=== PATIENT | female | born 1990 | race Caucasian/White ===

== ENCOUNTER 2018-03-25 15:45 | Emergency (ER) | payer MEDICAID, OTHER ==
[2018-03-25] MEDS: METOCLOPRAMIDE 10 MG INJ IV (19:13)
[2018-03-25] MEDS: SOD CHLORIDE 0.9% 1,000 ML IV (19:13)
[2018-03-25] MEDS: DIPHENHYDRAMINE 50 MG INJ IV (19:13)
== END 2018-03-25 20:25 | disposition home or self-care (01) ==
LOC: FTE 15:45
DX: O21.0 Mild hyperemesis gravidarum (principal); Z3A.13 13 weeks gestation of pregnancy
CPT/HCPCS: 96374; 99284-25

== ENCOUNTER 2018-09-15 16:33 | Outpatient (CLI) | payer MEDICAID ==
[2018-09-15 17:58] LABS: ADD UMIC YES; UR ASCORBIC ACID NEGATIVE (NEGATIVE); UR BACTERIA FEW /HPF (NONE SEEN); UR BILIRUBIN (Dip) NEGATIVE (NEGATIVE); UR BLOOD (Dip) NEGATIVE (NEGATIVE); UR CALCIUM OXALATE CRYSTAL MANY /HPF (NONE SEEN); UR CLARITY CLOUDY (CLEAR); UR COLOR YELLOW (YELLOW); UR GLUCOSE (Dip) NEGATIVE (NEGATIVE); UR KETONES (Dip) TRACE mg/dL (NEGATIVE); UR LEUKOCYTE ESTERASE (Dip) TRACE Leu/ul (NEGATIVE); UR MUCUS MODERATE /HPF (NONE SEEN); UR NITRITE (Dip) NEGATIVE (NEGATIVE); UR RBC 1 /HPF (0-5); UR SPECIFIC GRAVITY (Dip) 1.028 (1.003-1.030); UR SQUAMOUS EPITHELIAL CELL MANY /HPF (FEW); UR TOTAL PROTEIN (Dip) 1+ mg/dl (NEGATIVE); UR UROBILINOGEN (Dip) NEGATIVE (NEGATIVE); UR WBC 9 /HPF (0-5)
== END 2018-09-15 18:30 | disposition home or self-care (01) ==
LOC: OBT 16:33 → L-D 16:33 → OBT 18:30
DX: O62.9 Abnormality of forces of labor, unspecified (principal); Z3A.38 38 weeks gestation of pregnancy
CPT/HCPCS: 76815; 76818; 81001

== ENCOUNTER 2018-09-24 15:16 | Inpatient (IN) | payer MEDICAID ==
[2018-09-24] MEDS ORDERED: BUTORPHANOL 2 MG INJ IV (16:30)
[2018-09-24] MEDS ORDERED: METHYLERGONOVINE 0.2 MG INJ IM (16:30)
[2018-09-24] MEDS ORDERED: IBUPROFEN 600 MG TAB PO (16:30)
[2018-09-24] MEDS ORDERED: CARBOPROST 250 MCG INJ IM (16:30)
[2018-09-24] MEDS ORDERED: LIDOCAINE 1% (MPF) 30 ML INJ INJ (16:30)
[2018-09-24] MEDS ORDERED: OXYTOCIN 30 UNITS/LR 500 ML IV (16:30)
[2018-09-24] MEDS ORDERED: OXYCODONE/ASPIRIN (4.88/325) TAB PO (16:30)
[2018-09-24] MEDS ORDERED: MISOPROSTOL 200 MCG TAB PR (16:30)
[2018-09-24 17:14] LABS: ADD MAN DIFF? NO
[2018-09-24] MEDS: LACTATED RINGER'S 1,000 ML IV ×2 (17:16→21:37)
[2018-09-24 17:19] LABS: BASOPHILS % 0.4 % (0.0-2.0); EOSINOPHILS # 0.1 10^3/ul (0.0-0.5); EOSINOPHILS % 0.5 % (0.0-7.0); HEMATOCRIT 37.1 % (37.0-47.0); HEMOGLOBIN 11.8 g/dl (12.0-16.0); LYMPHOCYTES # 2.9 10^3/ul (0.8-2.9); LYMPHOCYTES % 27.1 % (15.0-51.0); MEAN CORPUSCULAR HEMOGLOBIN 26.3 pg (29.0-33.0); MEAN CORPUSCULAR HGB CONC 31.8 g/dl (32.0-37.0); MEAN CORPUSCULAR VOLUME 82.6 fl (82.0-101.0); MEAN PLATELET VOLUME 10.3 fl (7.4-10.4); MONOCYTE # 0.6 10^3/ul (0.3-0.9); MONOCYTES % 5.9 % (0.0-11.0); NEUTROPHIL # 6.9 10^3/ul (1.6-7.5); NEUTROPHILS % 65.6 % (39.0-77.0); PLATELET COUNT 271 10^3/UL (140-415); RED BLOOD COUNT 4.49 10^6/ul (4.20-5.40); RED CELL DISTRIBUTION WIDTH 14.4 % (11.5-14.5)
[2018-09-24 17:19] LABS: WHITE BLOOD COUNT 10.6 10^3/ul (4.8-10.8)
[2018-09-24 17:38] LABS: INR 0.91; PROTIME 12.3 Sec (11.9-14.9)
[2018-09-24 17:39] LABS: PARTIAL THROMBOPLASTIN TIME 24.5 Sec (23.0-35.0)
[2018-09-24 18:06] LABS: HEPATITIS B SURFACE ANTIGEN NEGATIVE (NEGATIVE)
[2018-09-25] MEDS: OXYTOCIN 30 UNITS/LR 500 ML IV ×2 (00:53→01:15)
[2018-09-25] MEDS ORDERED: ZOLPIDEM 5 MG TAB PO (04:00)
[2018-09-25] MEDS ORDERED: BENZOCAINE 20% 56 ML SPRAY TOP (04:00)
[2018-09-25] MEDS ORDERED: CARBOPROST 250 MCG INJ IM (04:00)
[2018-09-25] MEDS ORDERED: OXYCODONE/ASPIRIN (4.88/325) TAB PO ×2 (04:00)
[2018-09-25] MEDS ORDERED: MISOPROSTOL 200 MCG TAB PR (04:00)
[2018-09-25] MEDS ORDERED: METHYLERGONOVINE 0.2 MG INJ IM (04:00)
[2018-09-25] MEDS ORDERED: OXYTOCIN 30 UNITS/LR 500 ML IV (04:00)
[2018-09-25] MEDS: IBUPROFEN 600 MG TAB PO ×3 (05:28→17:27)
[2018-09-25] MEDS: LANOLIN HPA 1 PKT TOP (05:28)
[2018-09-25] MEDS: WITCH HAZEL/GLYCERIN PAD PR (05:28)
[2018-09-25] MEDS: SENNA/DOCUSATE NA (8.6MG/50MG) TAB PO ×2 (09:56→22:14)
[2018-09-25 15:53] LABS: RAPID PLASMA REAGIN NONREACTIVE (NR)
[2018-09-26] MEDS: IBUPROFEN 600 MG TAB PO ×5 (00:46→23:45)
[2018-09-26 08:47] LABS: ADD MAN DIFF? NO
[2018-09-26 08:50] LABS: BASOPHIL # 0.1 10^3/ul (0.0-0.1); BASOPHILS % 0.8 % (0.0-2.0); EOSINOPHILS # 0.2 10^3/ul (0.0-0.5); EOSINOPHILS % 1.7 % (0.0-7.0); HEMATOCRIT 33.5 % (37.0-47.0); HEMOGLOBIN 10.6 g/dl (12.0-16.0); LYMPHOCYTES # 4.1 10^3/ul (0.8-2.9); LYMPHOCYTES % 45.1 % (15.0-51.0); MEAN CORPUSCULAR HEMOGLOBIN 26.4 pg (29.0-33.0); MEAN CORPUSCULAR HGB CONC 31.6 g/dl (32.0-37.0); MEAN CORPUSCULAR VOLUME 83.5 fl (82.0-101.0); MEAN PLATELET VOLUME 10.5 fl (7.4-10.4); MONOCYTE # 0.6 10^3/ul (0.3-0.9); MONOCYTES % 6.2 % (0.0-11.0); NEUTROPHIL # 4.1 10^3/ul (1.6-7.5); NEUTROPHILS % 45.8 % (39.0-77.0); PLATELET COUNT 250 10^3/UL (140-415); RED BLOOD COUNT 4.01 10^6/ul (4.20-5.40); RED CELL DISTRIBUTION WIDTH 14.6 % (11.5-14.5)
[2018-09-26] MEDS: SENNA/DOCUSATE NA (8.6MG/50MG) TAB PO ×2 (09:00→20:57)
[2018-09-27] MEDS: IBUPROFEN 600 MG TAB PO ×2 (05:51→11:16)
[2018-09-27] MEDS: SENNA/DOCUSATE NA (8.6MG/50MG) TAB PO (08:53)
[2018-09-27] MEDS: DIPHTH/TET/ACEL PERTUSS (ADULT) 0.5 ML VIAL IM* (11:16)
== END 2018-09-27 13:28 | disposition home or self-care (01) | DRG 807 ==
LOC: OBT 15:16 → PP1 09-25 03:00 → L-D 15:17 → OBT 16:20 → L-D 16:20
PROVIDERS: Obstetrics & Gynecology
PROC: 4A1HXCZ Monitoring of Products of Conception, Cardiac Rate, External Approach (ICD-10-PCS; 2018-09-24)
PROC: 10E0XZZ Delivery of Products of Conception, External Approach (ICD-10-PCS; principal; 2018-09-25)
PROC: 3E0234Z Introduction of Serum, Toxoid and Vaccine into Muscle, Percutaneous Approach (ICD-10-PCS; 2018-09-26)
PROC: 3E0234Z Introduction of Serum, Toxoid and Vaccine into Muscle, Percutaneous Approach (ICD-10-PCS; 2018-09-27)
DX: O69.81X0 Labor and delivery complicated by cord around neck, without compression, not applicable or unspecified (principal); Z37.0 Single live birth; Z3A.39 39 weeks gestation of pregnancy; Z23 Encounter for immunization
CPT/HCPCS: 85025; 85610; 85730; 86592; 86850; 86900; 86901; 87340; 90686; 90715